=== PATIENT | male | born 1975 | race Caucasian/White ===

== ENCOUNTER 2016-12-26 08:24 | Inpatient (IN) | payer SELFPAY ==
[~2016-12-26] VITALS: Ht 170.2 cm; Wt 80.9 kg
[2016-12-26] MEDS ORDERED: IOVERSOL 350 MG/ML 100 ML VIAL ONE (08:34)
[2016-12-26] MEDS ORDERED: SODIUM CHLORIDE 0.9% 0 ML ONE (08:34)
[2016-12-26 08:52] LABS: BASOPHILS # (AUTO) 0.01 K/uL (0.00-0.20); BASOPHILS % (AUTO) 0.1 % (0.0-2.0); EOSINOPHILS # (AUTO) 0.02 K/uL (0.00-0.70); HEMATOCRIT 40.7 % (41-53); HEMOGLOBIN 13.8 g/dL (13.5-17.5); LYMPHOCYTES # (AUTO) 1.1 K/uL (1.0-4.8); MEAN CORPUSCULAR HEMOGLOBIN 28.1 pg (26.0-34.0); MEAN CORPUSCULAR HGB CONC 33.9 G/dL (31.0-37.0); MEAN CORPUSCULAR VOLUME 83 fL (80-100); MONOCYTES # (AUTO) 0.2 K/uL (0.1-1.0); MONOCYTES % (AUTO) 1.1 % (2.0-9.0); NEUTROPHILS # (AUTO) 14.2 K/uL (1.8-7.7); PLATELET COUNT (AUTO) 249 K/uL (150-450); RED BLOOD CELL COUNT(AUTO) 4.91 MIL/uL (4.50-5.90); RED CELL DISTRIBUTION WIDTH 13.8 % (11.5-14.5); WHITE BLOOD COUNT (AUTO) 15.5 K/uL (4.5-11.0)
[2016-12-26 08:54] LABS: NEUTROPHILS % (AUTO) 91.9 % (40.0-70.0); RBC MORPHOLOGY COMMENT NORMAL RBC MORPH
[2016-12-26] MEDS ORDERED: NICARDipine 20 MG/DEXT,ISO-OSM 200 ML IV PRN (08:54)
[2016-12-26 08:57] LABS: PROTHROMBIN TIME 10.6 SEC (9.4-11.6)
[2016-12-26 09:01] LABS: ANION GAP 11 mmol/L (8-16); CALCIUM, TOTAL 8.1 mg/dL (8.8-10.5); CARBON DIOXIDE 26 mmol/L (22-29); CHLORIDE 104 mmol/L (98-107); CREATININE 6.75 mg/dL (0.60-1.30); GLOMERULAR FILTR. RATE CALC 9 mL/min (>60); POTASSIUM 4.7 mmol/L (3.5-5.1); SODIUM SERUM 141 mmol/L (136-145); UREA NITROGEN, BLOOD 63 mg/dL (7-18)
[2016-12-26 09:26] LABS: ALANINE AMINOTRANSFERASE 16 U/L (12-78); ALBUMIN 3.5 g/dL (3.4-5.0); ASPARTATE AMINOTRANSFERASE 21 U/L (15-37); BILIRUBIN,TOTAL 0.3 mg/dL (0.1-1.0); CREATINE KINASE MB 1.3 ng/mL (0-5); CREATINE KINASE, TOTAL 166 U/L (39-308); TOTAL PROTEIN, SERUM 7.3 g/dL (6.4-8.2)
[2016-12-26 09:47] LABS: APPEARANCE,URINE CLOUDY (CLEAR); GLUCOSE, URINE (UA) NEGATIVE (NEGATIVE); KETONES,URINE NEGATIVE (NEGATIVE); LEUKOCYTE ESTERASE ,URINE NEGATIVE (NEGATIVE); OCCULT BLOOD,URINE LARGE (NEGATIVE); PH,URINE 5.5 (5.0-8.0); PROTEIN,URINE SEE CONFIRM (NEGATIVE)
[2016-12-26 09:48] LABS: ADD UA MICROSCOPIC YES
[2016-12-26 09:59] LABS: SULFOSALICYLIC ACID,URINE 3+ (Negative)
[2016-12-26 10:00] LABS: SQUAMOUS EPITHELIAL CELL,UR Few /LPF (None Seen); WBC,URINE 0-2 /HPF (0-5)
[2016-12-26 10:01] LABS: FINE GRANULAR CASTS,URINE 0-2 /LPF (None Seen)
[2016-12-26 10:40] VITALS: BP 166/110
[2016-12-26] MEDS ORDERED: MORPHINE SULFATE 2 MG/ML SYRINGE IVP PRN (11:00)
[2016-12-26] MEDS ORDERED: ONDANSETRON HCL 4 MG/2 ML VIAL IVP PRN (11:00)
[2016-12-26] MEDS ORDERED: BISACODYL 10 MG RECTAL RECTAL SUPPOSITORY PR PRN (11:00)
[2016-12-26] MEDS ORDERED: HYDROCODONE/ACETAMINOPHEN 5-325 MG TABLET PO PRN (11:00)
[2016-12-26] MEDS ORDERED: ZOLPIDEM TARTRATE 5 MG TABLET PO PRN (11:00)
[2016-12-26] MEDS ORDERED: MAGNESIUM HYDROXIDE SUSPENSION 30 ML UDCUP PO PRN (11:00)
[2016-12-26] MEDS ORDERED: ACETAMINOPHEN 325 MG TABLET PO PRN (11:00)
[2016-12-26 12:00] VITALS: BP 157/103
[2016-12-26] MEDS: NICARDipine 20 MG/DEXT,ISO-OSM 200 ML IV PRN ×4 (12:45→23:58)
[2016-12-26 16:00] VITALS: BP 128/74
[2016-12-26] MEDS: LABETALOL HCL 100 MG TABLET PO SCH ×2 (16:00→23:44)
[2016-12-26 20:00] VITALS: BP 144/103
[2016-12-26] MEDS: DOCUSATE SODIUM 100 MG CAPSULE PO SCH (21:00)
[2016-12-27] VITALS: BP 127/83
[2016-12-27 04:00] VITALS: BP 161/76
[2016-12-27 05:45] LABS: CALCIUM, TOTAL 8.2 mg/dL (8.8-10.5); CREATININE 6.77 mg/dL (0.60-1.30); POTASSIUM 4.3 mmol/L (3.5-5.1)
[2016-12-27 08:00] VITALS: BP 140/93
[2016-12-27] MEDS: DOCUSATE SODIUM 100 MG CAPSULE PO SCH ×2 (08:33→21:16)
[2016-12-27] MEDS: LABETALOL HCL 100 MG TABLET PO SCH ×3 (08:33→23:44)
[2016-12-27] MEDS: PANTOPRAZOLE SODIUM 40 MG DR TABLET PO SCH (08:33)
[2016-12-27] MEDS: AmLODIPine BESYLATE 2.5 MG TABLET PO SCH (10:18)
[2016-12-27 12:00] VITALS: BP 140/80
[2016-12-27] MEDS ORDERED: DEXTROSE 50%-WATER 25 GM/50 ML SYRINGE IVP PRN (12:15)
[2016-12-27] MEDS ORDERED: ENAL10TA PO (14:46)
[2016-12-27 16:00] VITALS: BP 139/81
[2016-12-27 18:22] LABS: GLUCOSE,POINT OF CARE 100 MG/DL (70-110)
[2016-12-27 20:00] VITALS: BP 135/89
[2016-12-27 20:55] LABS: CHOL/HDL RATIO 7.1 (4.2-7.3); THYROID STIMULATING HORMONE 1.07 uIU/mL (0.36-3.74)
[2016-12-27 21:32] LABS: GLUCOSE,POINT OF CARE 123 MG/DL (70-110)
[2016-12-28] VITALS (7 sets, daily range): BP systolic 114–153; BP diastolic 80–96
[2016-12-28 05:30] LABS: BASOPHILS % (AUTO) 0.4 % (0.0-2.0); EOSINOPHILS % (AUTO) 1.2 % (1.0-6.0); HEMATOCRIT 38.4 % (41-53); LYMPHOCYTES # (AUTO) 2.2 K/uL (1.0-4.8); LYMPHOCYTES % (AUTO) 14.7 % (22.0-44.0); MEAN CORPUSCULAR HGB CONC 33.8 G/dL (31.0-37.0); MEAN CORPUSCULAR VOLUME 83 fL (80-100); MONOCYTES # (AUTO) 0.9 K/uL (0.1-1.0); MONOCYTES % (AUTO) 5.8 % (2.0-9.0); NEUTROPHILS # (AUTO) 11.8 K/uL (1.8-7.7); NEUTROPHILS % (AUTO) 77.9 % (40.0-70.0); PLATELET COUNT (AUTO) 269 K/uL (150-450); RED BLOOD CELL COUNT(AUTO) 4.65 MIL/uL (4.50-5.90); RED CELL DISTRIBUTION WIDTH 13.8 % (11.5-14.5); WHITE BLOOD COUNT (AUTO) 15.2 K/uL (4.5-11.0)
[2016-12-28 05:38] LABS: CALCIUM, TOTAL 8.4 mg/dL (8.8-10.5); CREATININE 6.87 mg/dL (0.60-1.30); POTASSIUM 4.8 mmol/L (3.5-5.1)
[2016-12-28] MEDS: PANTOPRAZOLE SODIUM 40 MG DR TABLET PO SCH (08:09)
[2016-12-28] MEDS: AmLODIPine BESYLATE 2.5 MG TABLET PO SCH (08:09)
[2016-12-28] MEDS: DOCUSATE SODIUM 100 MG CAPSULE PO SCH ×2 (08:10→21:17)
[2016-12-28] MEDS: LABETALOL HCL 100 MG TABLET PO SCH (08:10)
[2016-12-28] MEDS: SODIUM CHLORIDE 0.45% 500 ML IV SCH ×2 (11:18→15:50)
[2016-12-28] MEDS: LABETALOL HCL 200 MG TABLET PO SCH (15:49)
[2016-12-28] MEDS: INSULIN ASPART 100 UNITS/ML SQ PRN (17:55)
[2016-12-28 19:14] LABS: GLUCOSE,POINT OF CARE 115 MG/DL (70-110)
[2016-12-28 20:40] LABS: GLUCOSE,POINT OF CARE 104 MG/DL (70-110)
[2016-12-29 00:07] VITALS: BP 142/91
[2016-12-29] MEDS: LABETALOL HCL 200 MG TABLET PO SCH ×4 (00:21→23:45)
[2016-12-29] MEDS: SODIUM CHLORIDE 0.45% 500 ML IV SCH ×3 (00:21→20:23)
[2016-12-29 05:07] VITALS: BP 157/81
[2016-12-29 06:36] LABS: BASOPHILS % (AUTO) 0.4 % (0.0-2.0); EOSINOPHILS % (AUTO) 1.6 % (1.0-6.0); HEMATOCRIT 35.5 % (41-53); HEMOGLOBIN 12.1 g/dL (13.5-17.5); LYMPHOCYTES # (AUTO) 2.2 K/uL (1.0-4.8); LYMPHOCYTES % (AUTO) 15.8 % (22.0-44.0); MEAN CORPUSCULAR HEMOGLOBIN 28.2 pg (26.0-34.0); MEAN CORPUSCULAR HGB CONC 34.1 G/dL (31.0-37.0); MEAN CORPUSCULAR VOLUME 83 fL (80-100); MONOCYTES # (AUTO) 0.9 K/uL (0.1-1.0); MONOCYTES % (AUTO) 6.9 % (2.0-9.0); NEUTROPHILS # (AUTO) 10.4 K/uL (1.8-7.7); NEUTROPHILS % (AUTO) 75.3 % (40.0-70.0); PLATELET COUNT (AUTO) 245 K/uL (150-450); RED BLOOD CELL COUNT(AUTO) 4.29 MIL/uL (4.50-5.90); RED CELL DISTRIBUTION WIDTH 13.9 % (11.5-14.5); WHITE BLOOD COUNT (AUTO) 13.8 K/uL (4.5-11.0)
[2016-12-29 06:43] LABS: CALCIUM, TOTAL 8.1 mg/dL (8.8-10.5); CREATININE 6.37 mg/dL (0.60-1.30); POTASSIUM 4.5 mmol/L (3.5-5.1)
[2016-12-29 07:21] VITALS: BP 140/78
[2016-12-29] MEDS: AmLODIPine BESYLATE 5 MG TABLET PO SCH (08:03)
[2016-12-29] MEDS: DOCUSATE SODIUM 100 MG CAPSULE PO SCH ×2 (08:03→20:23)
[2016-12-29] MEDS: PANTOPRAZOLE SODIUM 40 MG DR TABLET PO SCH (08:03)
[2016-12-29 08:42] LABS: HEPATITIS C AB SCREEN <0.1 s/co ratio (0.0-0.9)
[2016-12-29 11:09] VITALS: BP 128/76
[2016-12-29 13:10] LABS: ALBUMIN (IFE & ELECTROPHOR) 3.4 g/dL (2.9-4.4); ALBUMIN/GLOBULIN RATIO (IFE) 1.1 (0.7-1.7); ALPHA-2 (IFE & PEP) 0.8 g/dL (0.4-1.0); IGG (IMMUNOFIXATION) 798 mg/dL (700-1600); M-SPIKE (IEP) Not Observed g/dL (Not Observed); TOTAL PROTEIN 6.6 g/dL (6.0-8.5)
[2016-12-29 15:00] VITALS: BP 130/72
[2016-12-29 21:03] VITALS: BP 144/70
[2016-12-30] VITALS (7 sets, daily range): BP systolic 130–142; BP diastolic 70–97
[2016-12-30] MEDS: INSULIN ASPART 100 UNITS/ML SQ PRN ×2 (05:26→18:26)
[2016-12-30 07:35] LABS: BASOPHILS # (AUTO) 0.04 K/uL (0.00-0.20); BASOPHILS % (AUTO) 0.4 % (0.0-2.0); EOSINOPHILS # (AUTO) 0.23 K/uL (0.00-0.70); EOSINOPHILS % (AUTO) 1.87 % (1.0-6.0); HEMATOCRIT 36.8 % (41-53); HEMOGLOBIN 12.2 g/dL (13.5-17.5); LYMPHOCYTES # (AUTO) 1.9 K/uL (1.0-4.8); MEAN CORPUSCULAR HEMOGLOBIN 27.9 pg (26.0-34.0); MEAN CORPUSCULAR HGB CONC 33.2 G/dL (31.0-37.0); MEAN CORPUSCULAR VOLUME 84 fL (80-100); MONOCYTES # (AUTO) 0.8 K/uL (0.1-1.0); MONOCYTES % (AUTO) 6.1 % (2.0-9.0); NEUTROPHILS # (AUTO) 9.5 K/uL (1.8-7.7); NEUTROPHILS % (AUTO) 76.7 % (40.0-70.0); PLATELET COUNT (AUTO) 221 K/uL (150-450); RED BLOOD CELL COUNT(AUTO) 4.38 MIL/uL (4.50-5.90); RED CELL DISTRIBUTION WIDTH 14.1 % (11.5-14.5); WHITE BLOOD COUNT (AUTO) 12.4 K/uL (4.5-11.0)
[2016-12-30 08:00] LABS: CALCIUM, TOTAL 8.2 mg/dL (8.8-10.5); CREATININE 6.22 mg/dL (0.60-1.30); POTASSIUM 4.9 mmol/L (3.5-5.1)
[2016-12-30] MEDS: LABETALOL HCL 200 MG TABLET PO SCH ×2 (08:30→18:22)
[2016-12-30] MEDS: AmLODIPine BESYLATE 5 MG TABLET PO SCH (08:30)
[2016-12-30] MEDS: DOCUSATE SODIUM 100 MG CAPSULE PO SCH ×2 (08:30→20:17)
[2016-12-30] MEDS: PANTOPRAZOLE SODIUM 40 MG DR TABLET PO SCH (08:30)
[2016-12-30] MEDS: SODIUM CHLORIDE 0.45% 500 ML IV SCH ×2 (08:38→08:39)
[2016-12-30 13:16] LABS: ANTI NUCLEAR AB,DIRECT(SCREEN) Negative (Negative)
[2016-12-30 14:41] LABS: ALPHA-1 URINE (ELP) 1.5 %; ALPHA-2 URINE(ELP) 12.4 %; BETA URINE(ELP) 12.8 %; GAMMA URINE(ELP) 16.1 %
[2016-12-30 17:33] LABS: GLUCOSE,POINT OF CARE 147 MG/DL (70-110)
[2016-12-30 17:37] LABS: GLUCOSE,POINT OF CARE 140 MG/DL (70-110)
[2016-12-30 17:38] LABS: GLUCOSE,POINT OF CARE 123 MG/DL (70-110)
[2016-12-30 17:38] LABS: GLUCOSE,POINT OF CARE 125 MG/DL (70-110)
[2016-12-30 17:39] LABS: GLUCOSE,POINT OF CARE 121 MG/DL (70-110)
[2016-12-30 19:57] LABS: GLUCOSE COMMENT 1 Received Meds; GLUCOSE,POINT OF CARE 145 MG/DL (70-110)
[2016-12-31] MEDS: LABETALOL HCL 200 MG TABLET PO SCH ×3 (00:23→16:57)
[2016-12-31 05:49] VITALS: BP 130/78
[2016-12-31 06:59] LABS: CALCIUM, TOTAL 8.5 mg/dL (8.8-10.5); CREATININE 6.1 mg/dL (0.60-1.30); POTASSIUM 4.9 mmol/L (3.5-5.1)
[2016-12-31 07:54] VITALS: BP 143/79
[2016-12-31] MEDS: DOCUSATE SODIUM 100 MG CAPSULE PO SCH (08:20)
[2016-12-31] MEDS: PANTOPRAZOLE SODIUM 40 MG DR TABLET PO SCH (08:20)
[2016-12-31] MEDS: AmLODIPine BESYLATE 5 MG TABLET PO SCH (08:20)
[2016-12-31 11:18] VITALS: BP 130/74
[2016-12-31 15:55] VITALS: BP 134/77
[2016-12-31] MEDS ORDERED: DSS100 PO (16:45)
[2016-12-31] MEDS ORDERED: AMLO-511 PO (16:45)
[2016-12-31] MEDS ORDERED: LABE200T PO (16:46)
[2016-12-31 20:13] LABS: GLUCOSE,POINT OF CARE 109 MG/DL (70-110)
[2016-12-31 20:13] LABS: GLUCOSE,POINT OF CARE 118 MG/DL (70-110)
[2016-12-31 20:13] LABS: GLUCOSE,POINT OF CARE 120 MG/DL (70-110)
[2016-12-31 20:13] LABS: GLUCOSE,POINT OF CARE 101 MG/DL (70-110)
[2016-12-31 20:18] LABS: GLUCOSE,POINT OF CARE 101 MG/DL (70-110)
[2016-12-31 20:18] LABS: GLUCOSE,POINT OF CARE 101 MG/DL (70-110)
== END 2016-12-31 18:22 | disposition home or self-care (01) | DRG 64 ==
LOC: EMS 08:28 → ICU 09:03 → 5S 12-28 17:25
PROVIDERS: ADMIT Internal Medicine; ATTEND Internal Medicine
DX: I61.9 Nontraumatic intracerebral hemorrhage, unspecified (principal); N18.6 End stage renal disease; N17.9 Acute kidney failure, unspecified; E11.22 Type 2 diabetes mellitus with diabetic chronic kidney disease; E11.65 Type 2 diabetes mellitus with hyperglycemia; I16.1 Hypertensive emergency; I13.11 Hypertensive heart and chronic kidney disease without heart failure, with stage 5 chronic kidney disease, or end stage renal disease; D72.829 Elevated white blood cell count, unspecified; E78.00 Pure hypercholesterolemia, unspecified; Z82.49 Family history of ischemic heart disease and other diseases of the circulatory system; Z87.891 Personal history of nicotine dependence; Z91.14 Patient's other noncompliance with medication regimen
CPT/HCPCS: 51702; 70450; 76775; 80307; 82088; 82570; 82607; 82746; 82784; 82962; 83036; 83970; 84133; 84155; 84156; 84165; 84166; 84244; 84300; 84443; 85651; 86038; 86225; 86235; 86334; 86803; 87081; 87389; 92507; 92526; 92610; 93005; 93306; 93880; 93976; 96365; 96366; 97112; 97116; 97162; 97166; 97530; 97535; 99291; J7050